=== PATIENT | male | born 1995 | race Caucasian/White ===

== ENCOUNTER 2016-12-20 09:12 | Emergency (ER) | payer SELFPAY ==
[2016-12-20 09:18] VITALS: BP 148/89
--- NOTE | 2016-12-20 09:24 | ER Document Report ---
ED Medical Screen (RME) - General Chief Complaint: Hand Injury Stated Complaint: WOUND ON RIGHT HAND Time Seen by Provider: 12/20/16 09:22 Mode of Arrival: Ambulatory Information source: Patient Notes: This 21-year-old male patient comes emergency room complaining of pain and swelling to the right dorsal hand third knuckle. 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 He has been squeezing it trying to get pus out but nothing has come out. Past history of depression and autism. There is a healing wound over the right third metacarpal head. There is swelling around this area. There is swelling going proximally to the wrist possibly involving the extensor mechanism. I have greeted and performed a rapid initial assessment of this patient. A comprehensive ED assessment and evaluation of the patient, analysis of test results and completion of the medical decision making process will be conducted by additional ED providers. TRAVEL OUTSIDE OF THE [place] IN LAST 30 DAYS: No - Related Data Allergies/Adverse Reactions: No Known Allergies Allergy (Verified 12/20/16 09:19) Past Medical History - Social History Chew tobacco use (# tins/day): No Frequency of alcohol use: Occasional Drug Abuse: None - Past Medical History Cardiac Medical History: Reports: Hx Hypertension Renal/ Medical History: Denies: Hx Peritoneal Dialysis Psychiatric Medical History: Reports: Hx Depression Past Surgical History: Reports: Hx Orthopedic Surgery - Immunizations Hx Diphtheria, Pertussis, Tetanus Vaccination: Yes Physical Exam - Vital signs Vitals: Temp Pulse Resp BP Pulse Ox 98.3 F 97 16 148/89 H 97 12/20/16 09:13 12/20/16 09:13 12/20/16 09:13 12/20/16 09:13 12/20/16 09:13 Course - Vital Signs Vital signs: Temp Pulse Resp BP Pulse Ox 98.3 F 97 16 148/89 H 97 12/20/16 09:13 12/20/16 09:13 12/20/16 09:13 12/20/16 09:13 12/20/16 09:13
--- NOTE | 2016-12-20 10:15 | ER Document Report ---
ED Hand/Wrist Injury - General Chief Complaint: Hand Injury Stated Complaint: WOUND ON RIGHT HAND Time Seen by Provider: 12/20/16 09:22 Mode of Arrival: Ambulatory Information source: Patient Notes: Patient is a 21 year old male who presents to the ER today for pain, redness, swelling to the right hand, specifically over the second knuckle. 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 He denies any fever, chills, drainage from the area, however he has been trying to squeeze pus out of it and has been unsuccessful. He denies any history of MRSA. TRAVEL OUTSIDE OF THE [place] IN LAST 30 DAYS: No - Related Data Allergies/Adverse Reactions: No Known Allergies Allergy (Verified 12/20/16 09:19) Past Medical History - General Information source: Patient - Social History Smoking Status: Current Every Day Smoker Chew tobacco use (# tins/day): No Frequency of alcohol use: Occasional Drug Abuse: None Family History: Other - Carpal tunnel Patient has suicidal ideation: No Patient has homicidal ideation: No - Past Medical History Cardiac Medical History: Reports: Hx Hypertension Renal/ Medical History: Denies: Hx Peritoneal Dialysis Psychiatric Medical History: Reports: Hx Depression Past Surgical History: Reports: Hx Orthopedic Surgery - Immunizations Hx Diphtheria, Pertussis, Tetanus Vaccination: Yes Review of Systems - Review of Systems Constitutional: No symptoms reported EENT: No symptoms reported Cardiovascular: No symptoms reported Respiratory: No symptoms reported Gastrointestinal: No symptoms reported Genitourinary: No symptoms reported Male Genitourinary: No symptoms reported Musculoskeletal: See HPI Skin: See HPI Hematologic/Lymphatic: No symptoms reported Neurological/Psychological: No symptoms reported Physical Exam - Vital signs Vitals: Temp Pulse Resp BP Pulse Ox 98.3 F 97 16 148/89 H 97 12/20/16 09:13 12/20/16 09:13 12/20/16 09:13 12/20/16 09:13 12/20/16 09:13 - Notes Notes: PHYSICAL EXAMINATION: GENERAL: Unkempt, in no acute distress. HEAD: Atraumatic, normocephalic. EYES: Pupils equal round and reactive to light, extraocular movements intact, sclera anicteric, conjunctiva are normal. NECK: Normal range of motion, supple without lymphadenopathy LUNGS: CTAB and equal. No wheezes rales or rhonchi. HEART: Regular rate and rhythm without murmurs EXTREMITIES/skin: No pain with extension of any of the digits of the right hand , slightly tender to palpation over third digit MCP joint where there is erythema, edema, scab overlying the center, warmth to the touch, patient has no problem making a fist, edema does not include digits, normal range of motion, no pitting edema. No cyanosis. NEUROLOGICAL: Cranial nerves grossly intact. Normal sensory/motor exams. PSYCH: Normal mood, normal affect. SKIN: See extremities above Course - Re-evaluation Re-evalutation: 12/20/16 10:52 CBC with differential is normal with a normal white blood cell count. The upper extremity negative for any fluid collection, just superficial edema. Patient placed on Keflex for cellulitis. - Vital Signs Vital signs: Temp Pulse Resp BP Pulse Ox 98.3 F 97 16 148/89 H 97 12/20/16 09:13 12/20/16 09:13 12/20/16 09:13 12/20/16 09:13 12/20/16 09:13 - Laboratory Result Diagrams: 12/20/16 10:15 Discharge - Discharge Clinical Impression: Cellulitis of right hand Condition: Stable Disposition: HOME, SELF-CARE Additional Instructions: Return immediately for any new or worsening symptoms. Follow up with hand surgeon, Dr. singh if symptoms continue after 5 days or worsen at all. Prescriptions: Cephalexin Monohydrate [Keflex 500 mg Capsule] 500 mg PO Q6H 10 Days Ibuprofen [Motrin 800 mg Tablet] 800 mg PO Q8H PRN #30 tab PRN Reason: Referrals: ЕКАТЕРИНА SINGH DO [ACTIVE STAFF] - Follow up as needed
[2016-12-20 10:38] LABS: ABSOLUTE EOSINOPHILS # (AUTO) 0.2 10^3/uL (0.0-0.6); ABSOLUTE MONOCYTES (AUTO) 0.6 10^3/uL (0.1-1.4); ABSOLUTE NEUT (AUTO) 3.4 10^3/uL (1.7-8.2); BASOPHILS % (AUTO) 0.6 % (0-2); EOSINOPHILS % (AUTO) 3.7 % (0-6); HEMATOCRIT 46.5 % (37.9-51.0); HEMOGLOBIN 15.4 g/dL (13.5-17.0); HGB HCT DIFFERENCE -0.3; LYMPHOCYTES % (AUTO) 31.1 % (13-45); MEAN CORPUSCULAR HEMOGLOBIN 28.1 pg (27.0-33.4); MEAN CORPUSCULAR HGB CONC 33.2 g/dL (32.0-36.0); MEAN CORPUSCULAR VOLUME 85 fl (80-97); RED BLOOD COUNT 5.47 10^6/uL (4.35-5.55); RED CELL DISTRIBUTION WIDTH 13.2 % (11.5-14.0); SEGMENTED NEUTROPHILS % (AUTO) 54.6 % (42-78); WHITE BLOOD COUNT 6.3 10^3/uL (4.0-10.5)
--- NOTE | 2016-12-20 10:40 | RADIOLOGY REPORT (SQ) ---
EXAM DESCRIPTION: U/S EXTREMITY NONVASCULAR LTD COMPLETED DATE/TIME: 12/20/2016 10:22 am REASON FOR STUDY: R dorsal hand,swelling in 3rd extensor mechanism COMPARISON: None. TECHNIQUE: Dynamic and static grayscale images acquired of the localized site of clinical concern an d recorded on PACS. Additional selected color Doppler and spectral images recorded. SITE OF CONCERN: Dorsum of the right hand appear LIMITATIONS: None. FINDINGS: Minimal subcutaneous edema. No focal fluid collections. No abscess. No significant flui d distention visualized in the extensor tendon sheaths. IMPRESSION: MINIMAL SUBCUTANEOUS EDEMA. NO ABSCESS OR OTHER SIGNIFICANT FINDINGS. TECHNICAL DOCUMENTATION: JOB ID: [id number] [employer]- All Rights Reserved
[2016-12-20] MEDS ORDERED: CEPHALEXIN 500 MG CAPSULE PO ONE (10:44)
[2016-12-20] MEDS ORDERED: TRAMADOL HCL 50 MG TABLET PO ONE (10:44)
== END 2016-12-20 11:07 | disposition home or self-care (01) ==
LOC: ER 09:12
DX: L03.113 Cellulitis of right upper limb (principal); M79.89 Other specified soft tissue disorders; F17.200 Nicotine dependence, unspecified, uncomplicated
CPT/HCPCS: 36415; 76882; 85025; 99284

== ENCOUNTER 2017-01-26 13:58 | Emergency (ER) | payer SELFPAY ==
[2017-01-26 14:08] VITALS: BP 137/89
[2017-01-26] MEDS ORDERED: LIDOCAINE 1% INJ-PF (10 MG/ML) 30 ML SDV INJ ONE (14:11)
[2017-01-26] MEDS ORDERED: DOXYCYCLINE HYCLATE 100 MG TABLET PO ONE (14:11)
--- NOTE | 2017-01-26 14:24 | ER Document Report ---
ED Skin Rash/Insect Bite/Abscs - General Chief Complaint: Skin Sore(s) Stated Complaint: LEFT HAND INFECTION Time Seen by Provider: 01/26/17 14:07 Notes: Patient is a 21-year-old male, past medical history prior abscesses, autism, presents with 2 possible abscesses in his left forearm and on his dorsal surface of his left hand. 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 He had similar swelling a month ago, was placed on Keflex and the wounds improved. He said he did not finish the full course of Keflex because it was too many throughout the day. Denies fevers, numbness, tingling, difficulty moving his arms or hands. TRAVEL OUTSIDE OF THE [place] IN LAST 30 DAYS: No - Related Data Allergies/Adverse Reactions: No Known Allergies Allergy (Verified 12/20/16 09:19) Past Medical History - General Information source: Patient - Social History Smoking Status: Never Smoker Chew tobacco use (# tins/day): No Frequency of alcohol use: None Drug Abuse: Marijuana Family History: Other - Carpal tunnel Patient has suicidal ideation: No Patient has homicidal ideation: No - Past Medical History Cardiac Medical History: Reports: Hx Hypertension Renal/ Medical History: Denies: Hx Peritoneal Dialysis Psychiatric Medical History: Reports: Hx Depression Past Surgical History: Reports: Hx Orthopedic Surgery - Immunizations Hx Diphtheria, Pertussis, Tetanus Vaccination: Yes Review of Systems - Review of Systems Notes: REVIEW OF SYSTEMS: CONSTITUTIONAL: -fevers, -chills EENT: -eye pain, -difficulty swallowing, -nasal congestion CARDIOVASCULAR:-chest pain, -syncope. RESPIRATORY: -cough, -SOB GASTROINTESTINAL: -abdominal pain, - nausea, -vomiting, -diarrhea GENITOURINARY: -dysuria, -hematuria MUSCULOSKELETAL: -back pain, -neck pain SKIN: +left arm and hand redness HEMATOLOGIC: -easy bruising or bleeding. LYMPHATIC: -swollen, enlarged glands. NEUROLOGICAL: -altered mental status or loss of consciousness, -headache, - neurologic symptoms PSYCHIATRIC: -anxiety, -depression. ALL OTHER SYSTEMS REVIEWED AND NEGATIVE. Physical Exam - Vital signs Vitals: Temp Pulse Resp BP Pulse Ox 98.1 F 100 16 137/89 H 98 01/26/17 14:04 01/26/17 14:04 01/26/17 14:04 01/26/17 14:01/26/17 14:04 - Notes Notes: PHYSICAL EXAMINATION: GENERAL: Well-appearing, well-nourished and in no acute distress. HEAD: Atraumatic, normocephalic. EYES: Pupils equal round and reactive to light, extraocular movements intact, sclera anicteric, conjunctiva are normal. ENT: nares patent, oropharynx clear without exudates. Moist mucous membranes. NECK: Normal range of motion, supple without lymphadenopathy LUNGS: Breath sounds clear to auscultation bilaterally and equal. No wheezes rales or rhonchi. HEART: Regular rate and rhythm without murmurs ABDOMEN: Soft, nontender, normoactive bowel sounds. No guarding, no rebound. No masses appreciated. EXTREMITIES: Normal range of motion, no pitting or edema. No cyanosis. NEUROLOGICAL: Cranial nerves grossly intact. Normal speech, normal gait. Normal sensory and motor exams. PSYCH: Normal mood, normal affect. SKIN: 1 cm fluctuant abscess over dorsal part of left hand with surrounding erythema, 2 cm erythematous area over left posterior forearm, no drainage Course - Re-evaluation Re-evalutation: Small left hand abscess drained with a small amount of purulent drainage. Left forearm wound is mostly cellulitis. Will treat with doxycycline. Given strict return precautions and he understands. - Vital Signs Vital signs: Temp Pulse Resp BP Pulse Ox 98.1 F 100 16 137/89 H 98 01/26/17 14:04 01/26/17 14:04 01/26/17 14:04 01/26/17 14:04 01/26/17 14:04 Procedures - Incision and Drainage Left Hand Time completed: 14:28 Type: Simple Anesthetic type: 1% Lidocaine mL's of anesthetic: 2 Blade size: 11 I&D procedure: Betadine prep applied Incision Method: Incision made by scalpel Amount/type of drainage: 1 mL purulent drainage Discharge - Discharge Clinical Impression: Abscess Condition: Stable Disposition: HOME, SELF-CARE Additional Instructions: ABSCESS: You have an abscess (boil). This a pus-forming infection, usually due to staph. Some boils may be left to drain on their own, but most require lancing. From the time the tender lump first appears, it may be three or four days before the abscess is ready to norsi. Local heat and rest help at this stage of treatment. An antibiotic may prevent spread of the infection. Once the abscess is opened, packing may be placed into it. This is done so pus is not sealed inside by premature closure of the cavity. The packing will be removed at your follow-up visit or you may be advised to remove it yourself at home. Sometimes this packing must be replaced a few times during healing. The wound will heal with surprisingly little scar. Depending on the size and location of an abscess, healing can take one to four weeks. You may shower and wash the area around the incision site two or three times a day. Antibiotics may be prescribed, but are usually not necessary after an abscess has been drained. If you develop fever, chills, worsening pain, or increasing swelling in the area, call the doctor or return immediately. POST INCISION AND DRAINAGE: You have had an incision made to allow drainage of an abscess. The incision must remain open so that pus and debris can drain from the wound. If the abscess cavity is large, packing is placed. This keeps the tissues from collapsing and trapping pus inside, while the body shrinks the cavity. The packing may need to be replaced every day or two. The physician will instruct you on the packing. Keep a bulky dressing over the area. Replace it if it becomes saturated with blood or pus. Do not disturb the packing (if present). You may shower and cleanse the area with gentle soap and warm water two or three times a day. Local warmth may be soothing, and may promote faster healing. Return if you develop high fever or chills, or if you note spreading redness, increasing swelling, or increasing tenderness. MRSA CELLULITIS: You have an infection of your skin and underlying soft tissues called cellulitis. This is due to bacteria, which can enter through any break in the skin, or even through an irritated hair follicle. Untreated, cellulitis will usually worsen and may form an abscess which requires draining. Although many bacterial organisms can cause cellulitis and abscess formations, the most likely bacteria is Methicillin-Resistant Staph Aureus, or MRSA for short. Antibiotics are required. Usually, warm packs or warm soaks, and elevation of the infected area are recommended. You should start getting better within 24 to 36 hours. Most infections respond quickly to the right medication. Follow-up care is important, however, to check for abscess (boil) formation, unsuspected foreign body, or resistant infection. If you develop fever, chills, or if the area of infection is becoming rapidly more swollen or painful, call the doctor at once. DOXYCYCLINE: Doxycycline (Vibramycin, Doryx) is an antibiotic of the tetracycline family. This type of drug is useful for infections of the respiratory tract and genital tract, and is sometimes used for intestinal infections. Unlike most tetracyclines, doxycycline can be taken with food. It is longer acting, and (usually) less prone to side effects than regular tetracycline. Tetracycline antibiotics can stain immature teeth and SHOULD NOT BE TAKEN BY CHILDREN, NURSING MOTHERS, OR WOMEN. Tetracyclines can make you more prone to sunburn. Abdominal cramping, nausea, and diarrhea are occasional side effects. Women may experience vaginal yeast infections. Call the doctor at once if you develop hives, itching, shortness of breath , or lightheadedness. FOLLOW-UP CARE: Most simple abscesses will not require a follow up visit. If you had packing placed in the abscess, remove it as instructed by the physician. If you have been referred to a physician for follow-up care, call the physicians office for an appointment as you were instructed or within the next two days. If you experience worsening or a significant change in your symptoms, return to the Emergency Department at any time for re-evaluation. Prescriptions: Doxycycline Hyclate 100 mg PO BID #14 capsule
== END 2017-01-26 14:30 | disposition home or self-care (01) ==
LOC: ER 13:58
PROC: 0H9GXZZ Drainage of Left Hand Skin, External Approach (ICD-10-PCS; principal; 2017-01-26)
DX: L02.512 Cutaneous abscess of left hand (principal); L53.9 Erythematous condition, unspecified; I10 Essential (primary) hypertension
CPT/HCPCS: 99283

== ENCOUNTER 2017-04-11 13:03 | Observation (INO) | payer OTHER ==
[2017-04-11] MEDS ORDERED: ASPIRIN 81 MG TABLET, CHEWABLE PO ONE (13:07)
--- NOTE | 2017-04-11 13:14 | ER Document Report ---
ED General - General Stated Complaint: FALL NECK,BACK PAIN Time Seen by Provider: 04/11/17 13:07 Mode of Arrival: Medic Information source: Patient Notes: 22-year-old male who comes from [facility] with complaints of mechanical fall landing on his back complaining of back pain. Patient denies any chest pain shortness breath difficulty breathing initially, patient notes that this was an accidental fall on water and he did not do this on purpose. Patient has a history of hypertension which is uncontrolled Patient denies any early family cardiac history TRAVEL OUTSIDE OF THE [place] IN LAST 30 DAYS: No - HPI Onset: Just prior to arrival Onset/Duration: Sudden Quality of pain: Achy Severity: Mild Pain Level: 1 Associated symptoms: Body/muscle aches Exacerbated by: Movement Relieved by: Denies Similar symptoms previously: No Recently seen / treated by doctor: No - Related Data Allergies/Adverse Reactions: No Known Allergies Allergy (Verified 12/20/16 09:19) Past Medical History - Social History Smoking Status: Never Smoker Cigarette use (# per day): No Chew tobacco use (# tins/day): No Smoking Education Provided: No Family History: Reviewed & Not Pertinent, Other - Carpal tunnel - Past Medical History Cardiac Medical History: Reports: Hx Hypertension Renal/ Medical History: Denies: Hx Peritoneal Dialysis Psychiatric Medical History: Reports: Hx Depression Past Surgical History: Reports: Hx Orthopedic Surgery - Immunizations Hx Diphtheria, Pertussis, Tetanus Vaccination: Yes Review of Systems - Review of Systems Notes: REVIEW OF SYSTEMS: CONSTITUTIONAL : Denies fever, chills, or sweats. Denies recent illness. EENT: Denies eye, ear, throat, or mouth pain or symptoms. Denies nasal or sinus congestion or discharge. Denies throat, tongue, or mouth swelling or difficulty swallowing. CARDIOVASCULAR: Denies chest pain. Denies palpitations or racing or irregular heart beat. Denies ankle edema. RESPIRATORY: Denies cough, cold, or chest congestion. Denies shortness of breath, difficulty breathing, or wheezing. GASTROINTESTINAL: Denies abdominal pain or distention. Denies nausea, vomiting , or diarrhea. Denies blood in vomitus, stools, or per rectum. Denies black, tarry stools. Denies constipation. GENITOURINARY: Denies difficulty urinating, painful urination, burning, frequency, blood in urine, or discharge. MUSCULOSKELETAL: Admits to back pain SKIN: Denies rash, lesions or sores. HEMATOLOGIC : Denies easy bruising or bleeding. LYMPHATIC: Denies swollen, enlarged glands. NEUROLOGICAL: Denies confusion or altered mental status. Denies passing out or loss of consciousness. Denies dizziness or lightheadedness. Denies headache. Denies weakness or paralysis or loss of use of either side. Denies problems with gait or speech. Denies sensory loss, numbness, or tingling. Denies seizures. PSYCHIATRIC: Denies anxiety or stress. Denies depression, suicidal ideation, or homicidal ideation. ALL OTHER SYSTEMS REVIEWED AND NEGATIVE. Dictation was performed using [employer] voice recognition software PHYSICAL EXAMINATION: GENERAL: Well-appearing, well-nourished and in no acute distress. HEAD: Atraumatic, normocephalic. EYES: Pupils equal round and reactive to light, extraocular movements intact, sclera anicteric, conjunctiva are normal. ENT: Nares patent, oropharynx clear without exudates. Moist mucous membranes. NECK: Normal range of motion, supple without lymphadenopathy LUNGS: Breath sounds clear to auscultation bilaterally and equal. No wheezes rales or rhonchi. HEART: Regular rate and rhythm without murmurs ABDOMEN: Soft, nontender, nondistended abdomen. No guarding, no rebound. No masses appreciated. Musculoskeletal: C-collar in place generalized tenderness on palpation no step- off deformities NEUROLOGICAL: Cranial nerves grossly intact. Normal speech, normal gait. Normal sensory, motor exams PSYCH: Normal mood, normal affect. SKIN: Warm, Dry, normal turgor, no rashes or lesions noted. Physical Exam - Vital signs Vitals: Pulse Ox 98 04/11/17 13:28 Course - Re-evaluation Re-evalutation: 04/11/17 13:13 [facility] consulted, I will send EKG at this time to them 04/11/17 13:33 Dr Hernandez believes this is lvh, requests echo and enzymes but defers on transfer 04/11/17 13:55 - Vital Signs Vital signs: Temp Pulse Resp BP Pulse Ox 98 04/11/17 13:28 - Laboratory Result Diagrams: 04/11/17 13:10 04/11/17 13:10 Laboratory results interpreted by me: 04/11/17 13:10 Glucose 128 H Calcium 10.4 H - Diagnostic Test Radiology reviewed: Image reviewed, Reports reviewed - EKG Interpretation by Me EKG shows normal: Sinus rhythm, [place], Intervals, QRS Complexes Voltage: Consistant with [facility] Discharge - Discharge Bad tableCondition: Stable Disposition: ADMITTED OBSERVATION Admitting Provider: Hospitalist Unit Admitted: Telemetry
[2017-04-11 13:26] LABS: PROTHROMBIN TIME 13.2 SEC (11.4-15.4)
[2017-04-11 13:37] LABS: ABSOLUTE EOSINOPHILS # (AUTO) 0.1 10^3/uL (0.0-0.6); ABSOLUTE LYMPHOCYTES (AUTO) 1.3 10^3/uL (0.5-4.7); ABSOLUTE MONOCYTES (AUTO) 0.7 10^3/uL (0.1-1.4); ABSOLUTE NEUT (AUTO) 4.1 10^3/uL (1.7-8.2); BASOPHILS % (AUTO) 0.4 % (0-2); EOSINOPHILS % (AUTO) 2.1 % (0-6); HEMOGLOBIN 15.4 g/dL (13.5-17.0); HGB HCT DIFFERENCE 2.2; LYMPHOCYTES % (AUTO) 21.3 % (13-45); MEAN CORPUSCULAR HEMOGLOBIN 28.7 pg (27.0-33.4); MEAN CORPUSCULAR VOLUME 82 fl (80-97); MONOCYTES % (AUTO) 11.1 % (3-13); RED BLOOD COUNT 5.36 10^6/uL (4.35-5.55); RED CELL DISTRIBUTION WIDTH 13.6 % (11.5-14.0); SEGMENTED NEUTROPHILS % (AUTO) 65.1 % (42-78); WHITE BLOOD COUNT 6.2 10^3/uL (4.0-10.5)
[2017-04-11 13:46] LABS: ALANINE AMINOTRANSFERASE 27 U/L (21-72); ALBUMIN 4.8 g/dL (3.5-5.0); ALKALINE PHOSPHATASE 45 U/L (38-126); ANION GAP 14 (5-19); ASPARTATE AMINO TRANSFERASE 21 U/L (17-59); BLOOD UREA NITROGEN 16 mg/dL (7-20); CALCIUM 10.4 mg/dL (8.4-10.2); CARBON DIOXIDE 23 mmol/L (22-30); CHLORIDE 103 mmol/L (98-107); GLUCOSE 128 mg/dL (75-110); POTASSIUM 3.9 mmol/L (3.6-5.0); SODIUM 140.2 mmol/L (137-145)
[2017-04-11 13:47] LABS: BILIRUBIN,DIRECT 0.3 mg/dL (0.0-0.4); BILIRUBIN,TOTAL 0.9 mg/dL (0.2-1.3); CREATINE KINASE 102 U/L (55-170); TOTAL PROTEIN 8.1 g/dL (6.3-8.2)
[2017-04-11 13:59] LABS: CREATINE KINASE MB 1.67 ng/mL (<4.55)
[2017-04-11 14:02] LABS: TROPONIN I 0.045 ng/mL
--- NOTE | 2017-04-11 14:08 | RADIOLOGY REPORT (SQ) ---
EXAM DESCRIPTION: CT CERVICAL SPINE WITHOUT COMPLETED DATE/TIME: 04/11/2017 1:59 pm REASON FOR STUDY: fall COMPARISON: None. TECHNIQUE: Axial images acquired through the cervical spine without intravenous contrast. Images re viewed with lung, soft tissue and bone windows. Reconstructed coronal and sagittal MPR images review ed. Images stored on PACS. All CT scanners at this facility use dose modulation, iterative reconstruction, and/or weight based d osing when appropriate to reduce radiation dose to as low as reasonably achievable (ALARA). [facility]: Dose Right [facility]: CareDose [facility]: Dose Right [facility]: Teradose 4D [facility]: Smart [employer], a Division of [employer] RADIATION DOSE: Up-to-date CT equipment and radiation dose reduction techniques were employed. CTDIv ol: 20.3 mGy. DLP: 504 mGy-cm. mGy. LIMITATIONS: None. FINDINGS: ALIGNMENT: Anatomic. MINERALIZATION: Normal. VERTEBRAL BODIES: No fractures or dislocation. DISCS: No significant disc disease. FACETS, LATERAL MASSES, POSTERIOR ELEMENTS: No fractures. No dislocation. No acute findings. HARDWARE: None in the spine. VISUALIZED RIBS: No fractures. LUNG APICES AND SOFT TISSUES: No significant or acute findings. OTHER: No other significant finding. IMPRESSION: NO ACUTE OR SIGNIFICANT FINDINGS IN THE CERVICAL SPINE. TECHNICAL DOCUMENTATION: JOB ID: [id number] Quality ID # [id number]: Final reports with documentation of one or more dose reduction techniques (e.g., Au tomated exposure control, adjustment of the mA and/or kV according to patient size, use of iterative reconstruction technique) 2010 [employer]- All Rights Reserved
--- NOTE | 2017-04-11 14:11 | RADIOLOGY REPORT (SQ) ---
EXAM DESCRIPTION: CT LUMBAR SPINE WITHOUT COMPLETED DATE/TIME: 04/11/2017 1:59 pm REASON FOR STUDY: fall COMPARISON: None. TECHNIQUE: Axial images acquired through the lumbar spine without intravenous contrast. Images revi ewed with lung, soft tissue and bone windows. Reconstructed coronal and sagittal MPR images reviewed . All images stored on PACS. All CT scanners at this facility use dose modulation, iterative reconstruction, and/or weight based d osing when appropriate to reduce radiation dose to as low as reasonably achievable (ALARA). [facility]: Dose Right [facility]: CareDose [facility]: Dose Right [facility]: Teradose 4D [facility]: [employer] RADIATION DOSE: mGy. LIMITATIONS: None. FINDINGS: SEGMENTATION: Normal. No transitional anatomy. ALIGNMENT: Grade 1 anterolisthesis of L5 on S1. VERTEBRAL BODIES: No fractures. No dislocation. No acute findings. DISCS: Disc bulge at L4-L5. Study limited by lack of intrathecal contrast. PEDICLES, TRANSVERSE PROCESSES: Bilateral pars defects at L5. No fractures. No dislocation. No acu te findings. FACETS, POSTERIOR ELEMENTS: No fractures. No dislocation. No spinal stenosis. HARDWARE: None in the spine. VISUALIZED RIBS: No fractures. SOFT TISSUES: No significant or acute finding in adjacent soft tissues. OTHER: Exit foraminal stenosis at L5-S1 secondary to anterolisthesis. IMPRESSION: 1. 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 THIS RESULTS IN EXIT MELIDA INAL STENOSIS. 2. DISC BULGE AT L4-L 5. 3. NO ACUTE BONY FINDINGS. TECHNICAL DOCUMENTATION: JOB ID: [id number] Quality ID # [id number]: Final reports with documentation of one or more dose reduction techniques (e.g., Au tomated exposure control, adjustment of the mA and/or kV according to patient size, use of iterative reconstruction technique) 2010 [employer]- All Rights Reserved
--- NOTE | 2017-04-11 14:13 | RADIOLOGY REPORT (SQ) ---
EXAM DESCRIPTION: CT THORACIC SPINE WITHOUT COMPLETED DATE/TIME: 04/11/2017 1:59 pm REASON FOR STUDY: fall COMPARISON: None. TECHNIQUE: Axial images acquired through the thoracic spine without intravenous contrast. Images re viewed with lung, soft tissue and bone windows. Reconstructed coronal and sagittal MPR images review ed. Images stored on PACS. All CT scanners at this facility use dose modulation, iterative reconstruction, and/or weight based d osing when appropriate to reduce radiation dose to as low as reasonably achievable (ALARA). [facility]: Dose Right [facility]: CareDose [facility]: Dose Right [facility]: Teradose 4D [facility]: Smart [employer] RADIATION DOSE: Up-to-date CT equipment and radiation dose reduction techniques were employed. CTDIv ol: 100.9 mGy. DLP: 3221 mGy-cm. mGy. LIMITATIONS: None. FINDINGS: VISUALIZED LUNGS: No acute opacities. No pneumothorax. SOFT TISSUES: No soft tissue swelling. No masses. VERTEBRAL BODIES: No fractures. No dislocation. No acute findings. DISCS: No significant disc space narrowing. ALIGNMENT: Normal. TRANSVERSE PROCESSES, POSTERIOR ELEMENTS: No fractures. No dislocation. No acute findings. HARDWARE: None in the spine. VISUALIZED RIBS: No fractures. OTHER: No other significant finding. IMPRESSION: NORMAL CT OF THE THORACIC SPINE. TECHNICAL DOCUMENTATION: JOB ID: [id number] Quality ID # [id number]: Final reports with documentation of one or more dose reduction techniques (e.g., Au tomated exposure control, adjustment of the mA and/or kV according to patient size, use of iterative reconstruction technique) 2010 [email or web address]- All Rights Reserved
[2017-04-11] MEDS ORDERED: ONDANSETRON 4 MG TAB.RAPDIS PO PRN (14:47)
[2017-04-11] MEDS ORDERED: OXYCODONE-ACETAMINOPHEN 5-325 MG TABLET PO PRN (14:47)
[2017-04-11] MEDS ORDERED: ACETAMINOPHEN 325 MG TABLET PO PRN (14:47)
[2017-04-11] MEDS ORDERED: IBUPROFEN 800 MG TABLET PO PRN (14:59)
--- NOTE | 2017-04-11 14:59 | PDOC H&P ---
History of Present Illness Admission Date/PCP: April 11, 2017 Patient complains of: Back pain History of Present Illness: NICOLASA MARTINEZ is a 22 year old male who is 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 He was transported for evaluation. The patient had an unremarkable CT scan of his spine. He had an EKG done for unclear reasons and is noted to have significant LVH with ST and T-wave depression. The emergency room physician discussed this with the on-call cut to length operator who felt the patient should be placed in the hospital as an observation monitored overnight and an echocardiogram to be done. Patient denies any chest pain or palpitations. Denies any dyspnea on exertion. Denies any orthopnea or PND. There is no family history of cardiac disease. Past Medical History Cardiac Medical History: Reports: Hypertension Pulmonary Medical History: Reports: None Neurological Medical History: Reports: None Endocrine Medical History: Reports: None Renal/ Medical History: Reports: None Malignancy Medical History: Reports: None GI Medical History: Reports: None Musculoskeltal Medical History: Reports: None Skin Medical History: Reports: None Psychiatric Medical History: Reports: Depression, Post Traumatic Stress Disorder , Other - Patient reports that he has autism Traumatic Medical History: Reports: None Hematology: Reports: None Infectious Medical History: Reports: None Past Surgical History Past Surgical History: Reports: Orthopedic Surgery - 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 His health history is unknown. Mother is 42 and alive and has autism according to the patient Parental Family History Reviewed: Yes Children Family History Reviewed: No Sibling(s) Family History Reviewed.: No Medication/Allergy Home Medications: Fluoxetine HCl [Prozac 20 mg Capsule] 20 mg PO DAILY 10/09/15 Naproxen [Naprosyn 250 Nmg Tablet] 1 tab PO BID #14 tablet 10/09/15 Cephalexin Monohydrate [Keflex 500 mg Capsule] 500 mg PO Q6H 10 Days capsule Ibuprofen [Motrin 800 mg Tablet] 800 mg PO Q8H PRN #30 tab 12/20/16 Doxycycline Hyclate 100 mg PO BID #14 capsule 01/26/17 Allergies/Adverse Reactions: No Known Allergies Allergy (Verified 12/20/16 09:19) Review of Systems Constitutional: ABSENT: chills, fever(s), headache(s), weight gain, weight loss Eyes: ABSENT: visual disturbances Ears: ABSENT: hearing changes Cardiovascular: ABSENT: chest pain, dyspnea on exertion, edema, orthropnea, palpitations Respiratory: ABSENT: cough, hemoptysis Gastrointestinal: ABSENT: abdominal pain, constipation, diarrhea, hematemesis, hematochezia, nausea, vomiting Genitourinary: ABSENT: dysuria, hematuria Musculoskeletal: PRESENT: back pain Integumentary: ABSENT: rash, wounds Neurological: ABSENT: abnormal gait, abnormal speech, confusion, dizziness, focal weakness, syncope Psychiatric: PRESENT: depression Endocrine: ABSENT: cold intolerance, heat intolerance, polydipsia, polyuria Hematologic/Lymphatic: ABSENT: easy bleeding, easy bruising Physical Exam Vital Signs: Temp Pulse Resp BP Pulse Ox 98 04/11/17 13:28 General appearance: PRESENT: no acute distress, well-developed, well-nourished Head exam: PRESENT: atraumatic, normocephalic Eye exam: PRESENT: conjunctiva pink, EOMI, PERRLA. ABSENT: scleral icterus Ear exam: PRESENT: normal external ear exam Mouth exam: PRESENT: moist, tongue midline Neck exam: ABSENT: carotid bruit, JVD, lymphadenopathy, thyromegaly Respiratory exam: PRESENT: clear to auscultation lyle. ABSENT: rales, rhonchi, wheezes Cardiovascular exam: PRESENT: RRR. ABSENT: diastolic murmur, rubs, systolic murmur Pulses: PRESENT: normal dorsalis pedis pul Vascular exam: PRESENT: normal capillary refill GI/Abdominal exam: PRESENT: normal bowel sounds, soft. ABSENT: distended, guarding, mass, organolmegaly, rebound, tenderness Rectal exam: PRESENT: deferred Extremities exam: PRESENT: full ROM. ABSENT: calf tenderness, clubbing, pedal edema Neurological exam: PRESENT: alert, awake, oriented to person, oriented to place , oriented to time, oriented to situation, CN II-XII grossly intact. ABSENT: motor sensory deficit Psychiatric exam: PRESENT: anxious Skin exam: PRESENT: dry, intact, warm. ABSENT: cyanosis, rash Results Laboratory Results: 04/11/17 13:10 04/11/17 13:10 04/11/17 04/11/17 13:10 13:10 WBC 6.2 RBC 5.36 Hgb 15.4 Hct 44.0 MCV 82 MCH 28.7 MCHC 35.0 RDW 13.6 Plt Count 186 Seg Neutrophils % 65.1 Lymphocytes % 21.3 Monocytes % 11.1 Eosinophils % 2.1 Basophils % 0.4 Absolute Neutrophils 4.1 Absolute Lymphocytes 1.3 Absolute Monocytes 0.7 Absolute Eosinophils 0.1 Absolute Basophils 0.0 Sodium 140.2 Potassium 3.9 Chloride 103 Carbon Dioxide 23 Anion Gap 14 BUN 16 Creatinine 0.90 Est GFR ( Amer) > 60 Est GFR (Non-Af Amer) > 60 Glucose 128 H Calcium 10.4 H Total Bilirubin 0.9 AST 21 ALT 27 Alkaline Phosphatase 45 Total Protein 8.1 Albumin 4.8 04/11/17 04/11/17 13:10 13:10 Creatine Kinase 102 CK-MB (CK-2) 1.67 Troponin I 0.045 Impressions: Cervical Spine CT 04/11/17 13:07 IMPRESSION: NO ACUTE OR SIGNIFICANT FINDINGS IN THE CERVICAL SPINE. Lumbar Spine CT 04/11/17 13:07 IMPRESSION: 1. 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 THIS RESULTS IN EXIT FORAMINAL STENOSIS. 2. DISC BULGE AT L4-L 5. 3. NO ACUTE BONY FINDINGS. Thoracic Spine CT 04/11/17 13:07 IMPRESSION: NORMAL CT OF THE THORACIC SPINE. Assessment & Plan - Diagnosis (1) Abnormal EKG Is this a current diagnosis for this admission?: Yes Plan: The ER physician discussed this with the on-call cut to length operator at [place]. They recommended obtaining an echocardiogram. Will admit on telemetry and watch overnight. We will get an echocardiogram and if that is normal discharge back to nursing home. This most likely represents LVH secondary to uncontrolled hypertension. (2) Posttraumatic stress disorder Is this a current diagnosis for this admission?: Yes Plan: Patient reports that he has taken BuSpar and Paxil in the past. (3) Hypertension Is this a current diagnosis for this admission?: Yes Plan: His blood pressure slightly elevated but currently in pain secondary to his back (4) Autism Is this a current diagnosis for this admission?: Yes Plan: This is self-reported by the patient. (5) Back pain Qualifiers: Back pain location: low back pain Chronicity: acute Back pain laterality : bilateral Sciatica presence: without sciatica Qualified Code(s): M54.5 - Low back pain Is this a current diagnosis for this admission?: Yes Plan: We will give ibuprofen and Percocet as needed. Patient had CT scan of the only abnormality is a pars defect at L5. - Time Time Spent: 30 to 50 Minutes - Plan Summary Plan Summary: We will admit as an observation.
[2017-04-11 15:26] LABS: URINE BARBITURATES SCREEN NEGATIVE; URINE METHADONE SCREEN NEGATIVE; URINE OPIATES LOW NEGATIVE; URINE PHENCYCLIDINE SCREEN NEGATIVE
--- NOTE | 2017-04-11 23:23 | EKG REPORT ---
SEVERITY:- ABNORMAL ECG - SINUS RHYTHM PROBABLE LEFT ATRIAL ABNORMALITY LVH WITH SECONDARY REPOLARIZATION ABNORMALITY REPOL ABNRM, PROBABLE ISCHEMIA, DIFFUSE LEADS ANTERIOR ST ELEVATION, PROBABLY DUE TO LVH : Confirmed by: Bar Sequeira 11-Apr-2017 23:22:38
[2017-04-12] MEDS ORDERED: LORAZEPAM 1 MG TABLET ONE (07:48)
[2017-04-12] MEDS ORDERED: ONDANSETRON 4 MG TAB.RAPDIS PO PRN (09:30)
--- NOTE | 2017-04-12 09:47 | Physician Advisory Note ---
Physician Advisor ProgressNote .: Pursuant to the plan for [facility], I have reviewed the medical record for this patient. Physician Advisor Statement: Please consider documentin. "Obesity w/BMI 42.7" Thx - CK
[2017-04-12 12:30] VITALS: BP 153/78
--- NOTE | 2017-04-12 18:26 | XCELERA REPORT ---
[address] [address] Transthoracic Echocardiogram Report Name: NICOLASA MARTINEZ Age: 22 yrs Gender: Male : 1995 Patient Status: Inpatient Patient Location: [address] [place] [address] Study Date: 04/12/2017 08:31 AM Height: 64 in Weight: 247 lb BSA: 2.1 m2 Procedure: A complete two-dimensional transthoracic echocardiogram was performed (2D, M-mode, spectral and color flow Doppler). The study was technically adequate with some images being suboptimal in quality. Reason For Study: abnormal ekg Ordering Physician: AMADA BOBO Performed By: Geetha Griffin Interpretation Summary The left ventricular ejection fraction is normal. Doppler measurements suggest pseudonormalized left ventricular relaxation, which is associated with grade II/IV or mild to moderate diastolic dysfunction There is mild to moderate concentric left ventricular hypertrophy. The left ventricle is grossly normal size. Wall motion cannot be accurately commented on, but no definite regional wall motion abnormalities noted. The right ventricular systolic function is normal. The right atrium is normal in size The left atrial size is normal. There is a trace amount of mitral regurgitation There is no mitral valve stenosis. No aortic regurgitation is present. There is no aortic valve stenosis There is a trace or physiologic amount of tricuspid regurgitation Tricuspid regurgitation jet envelope not well defined to measure RV systolic pressure accurately. The aortic root is not well visualized but is probably normal size. The inferior vena cava appeared normal and decreased > 50% with respiration (RAP 5-10 mmHg) Minimal pericardial effusion. MMode/2D Measurements & Calculations RVDd: 2.0 cm LVIDd: 5.3 cmFS: 45.5 % Ao root diam: 3.3 cm IVSd: 1.4 cm LVIDs: 2.9 cmEDV(Teich): 134.9 ml LVPWd: 1.3 cmESV(Teich): 31.8 ml Ao root area: 8.8 cm2 EF(Teich): 76.4 % LA dimension: 3.0 cm LVOT diam: 2.2 cm LVOT area: 3.9 cm2 Doppler Measurements & Calculations MV E max neela: MV P1/2t max neela: Ao V2 max: LV V1 max P.6 cm/sec 72.3 cm/sec 177.6 cm/sec 11.6 mmHg MV A max neela: MV P1/2t: 82.0 msec Ao max PG: LV V1 max: 55.9 cm/sec MVA(P1/2t): 2.7 cm2 12.6 mmHg 170.5 cm/sec MV E/A: 1.3 MV dec slope: PENNY(V,D): 3.7 cm2 258.4 cm/sec2 PA V2 max: 133.9 cm/sec PA max P.2 mmHg Left Ventricle The left ventricle is grossly normal size. There is mild concentric left ventricular hypertrophy. The left ventricular ejection fraction is normal. Doppler measurements suggest pseudonormalized left ventricular relaxation, which is associated with grade II/IV or mild to moderate diastolic dysfunction. Wall motion cannot be accurately commented on, but no definite regional wall motion abnormalities noted. Right Ventricle The right ventricle is grossly normal size. There is normal right ventricular wall thickness. The right ventricular systolic function is normal. Atria The right atrium is normal in size. The left atrial size is normal. Interarterial septum not well visualized and not well dopplered. Cannot comment on ASD/PFO presence. Mitral Valve The mitral valve is grossly normal. There is no mitral valve stenosis. There is a trace amount of mitral regurgitation. Aortic Valve The aortic valve is grossly normal. There is no aortic valve stenosis. No aortic regurgitation is present. Tricuspid Valve The tricuspid valve is not well visualized, but is grossly normal. There is no tricuspid stenosis. There is a trace or physiologic amount of tricuspid regurgitation. Tricuspid regurgitation jet envelope not well defined to measure RV systolic pressure accurately. Pulmonic Valve The pulmonic valve is not well visualized. Great Vessels The aortic root is not well visualized but is probably normal size. The inferior vena cava appeared normal and decreased > 50% with respiration (RAP 5-10 mmHg). Effusions Minimal pericardial effusion. : AMADA BOBO > Bar Sequeira
--- NOTE | 2017-04-12 19:08 | PDOC DISCHARGE SUMMARY ---
General - Admit/Disc Date/PCP Admission Date/Primary Care Provider: 04/11/17 14:47 Discharge Date: 04/12/17 - Discharge Diagnosis (1) Abnormal EKG Is this a current diagnosis for this admission?: Yes Summary: Echocardiogram shows mild to moderate left ventricular hypertrophy with diastolic dysfunction. (2) Posttraumatic stress disorder Is this a current diagnosis for this admission?: Yes (3) Hypertension Is this a current diagnosis for this admission?: Yes (4) Autism Is this a current diagnosis for this admission?: Yes (5) Back pain Is this a current diagnosis for this admission?: Yes - Additional Information Resuscitation Status: Full Code Discharge Diet: Regular Discharge Activity: Activity As Tolerated Home Medications: Buspirone HCl [Buspar 10 mg Tablet] 5 mg PO BID 04/12/17 Ibuprofen [Motrin 800 mg Tablet] 800 mg PO Q8HP PRN tablet 04/12/17 Paroxetine HCl [Paxil] 30 mg PO DAILY 04/12/17 History of Present Illness History of Present Illness: NICOLASA MARTINEZ is a 22 year old male who is 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 He was transported for evaluation. The patient had an unremarkable CT scan of his spine. He had an EKG done for unclear reasons and is noted to have significant LVH with ST and T-wave depression. The emergency room physician discussed this with the on-call gem cutter who felt the patient should be placed in the hospital as an observation monitored overnight and an echocardiogram to be done. Patient denies any chest pain or palpitations. Denies any dyspnea on exertion. Denies any orthopnea or PND. There is no family history of cardiac disease. Hospital Course Hospital Course: 22-year-old gentleman admitted with abnormal EKG. The patient had significant LVH EKG. On the patient was monitored overnight and had an echocardiogram which showed left ventricular hypertrophy along with diastolic dysfunction. The patient also had back pain from a fall suffered in [facility] and had spines CT scans that were unremarkable. Patient is discharged back to the hospital in stable condition. Physical Exam Vital Signs: Temp Pulse Resp BP Pulse Ox 98.1 F 71 18 153/78 H 98 04/12/17 12:59 04/12/17 12:59 04/12/17 12:59 04/12/17 12:59 04/12/17 12:59 Intake & Output 04/11/17 04/12/17 04/13/17 06:59 06:59 06:59 Intake Total 380 Output Total 250 Balance 130 Weight 112.9 kg General appearance: PRESENT: no acute distress Eye exam: PRESENT: conjunctiva pink. ABSENT: scleral icterus Mouth exam: PRESENT: moist, tongue midline Neck exam: ABSENT: JVD Respiratory exam: PRESENT: clear to auscultation lyle. ABSENT: rales, rhonchi, wheezes Cardiovascular exam: PRESENT: RRR. ABSENT: diastolic murmur, rubs, systolic murmur GI/Abdominal exam: PRESENT: normal bowel sounds, soft. ABSENT: distended, guarding, mass, organolmegaly, rebound, tenderness Extremities exam: ABSENT: calf tenderness, clubbing, pedal edema Neurological exam: PRESENT: alert, awake, oriented to person, oriented to place , oriented to time, oriented to situation, CN II-XII grossly intact. ABSENT: motor sensory deficit Psychiatric exam: PRESENT: appropriate affect Results Laboratory Results: 04/11/17 17:55 Troponin I 0.047 Impressions: Cervical Spine CT 04/11/17 13:07 IMPRESSION: NO ACUTE OR SIGNIFICANT FINDINGS IN THE CERVICAL SPINE. Lumbar Spine CT 04/11/17 13:07 IMPRESSION: 1. 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 THIS RESULTS IN EXIT FORAMINAL STENOSIS. 2. DISC BULGE AT L4-L 5. 3. NO ACUTE BONY FINDINGS. Thoracic Spine CT 04/11/17 13:07 IMPRESSION: NORMAL CT OF THE THORACIC SPINE. Qualifiers PATEINT BEING DISCHARGED WITH ANY OF THE FOLLOWING DIAGNOSIS?: No Plan Discharge Plan: Patient is discharged back to [facility]. Time Spent: Less than 30 Minutes
== END 2017-04-12 13:22 ==
LOC: ER 13:03 → EH 14:47 → UNDOADMOB 16:20 → EH 16:20 → 5 23:01
PROVIDERS: ADMIT Internal Medicine; ATTEND Internal Medicine
DX: R94.31 Abnormal electrocardiogram [ECG] [EKG] (principal); I51.89 Other ill-defined heart diseases; I51.7 Cardiomegaly; F43.10 Post-traumatic stress disorder, unspecified; I10 Essential (primary) hypertension; F84.0 Autistic disorder; M54.5 Low back pain; W01.0XXA Fall on same level from slipping, tripping and stumbling without subsequent striking against object, initial encounter; Y92.149 Unspecified place in prison as the place of occurrence of the external cause; F32.9 Major depressive disorder, single episode, unspecified
CPT/HCPCS: 93005; 99285; 36415; 82553; 82550; 85025; 85610; 80053; 84484; 80307; 93306; 72125; 72128; 72131; 93010; G0378 ×3; J3490